=== PATIENT | male | born 1995 | race Two or more races ===

== ENCOUNTER 2024-05-25 21:48 | Emergency (ER) | payer MEDICAID, SELFPAY ==
[2024-05-25 21:48] VITALS: BMI 31.9
[2024-05-25 21:58] VITALS: BP 133/85; PULSE 128; RESP 19; TEMP 36.8; O2SAT 98
--- NOTE | 2024-05-25 22:09 | EKG_ITS ---
[facility] (Formerly [facility]) Test Date: 2024-05-25 Pat Name: JEFFERY DELACRUZ Department: Room: - Gender: Male Dental Office Coordinator: : 1995 Requested By: Darvin Dueñas ([facility]) Order Number: [id number] Reading MD: Darvin Dueñas ([facility]) Measurements Intervals [place] Rate: 122 P: 21 NM: 124 QRS: 44 QRSD: 81 T: -9 QT: 337 QTc: 482 Interpretive Statements SINUS TACHYCARDIA NONSPECIFIC T-WAVE ABNORMALITY ABNORMAL RHYTHM ECG No previous ECG available for comparison /store/S0/[id number].pdf
--- NOTE | 2024-05-25 22:11 | PD.EDRME ---
Rapid Medical Screening Exam RME Arrival date/time: 05/25/24 21:48 89-year-old male presents emergency department complaining of diffuse abdominal pain with nausea and vomiting and fever. Chief Complaint: Abdominal Pain Time Seen by Provider: 05/25/24 22:01 Vital signs: Vital Signs Temperature 98.2 F 05/25/24 21:58 Pulse Rate 128 H 05/25/24 21:58 Respiratory Rate 19 05/25/24 21:58 Blood Pressure 133/85 H 05/25/24 21:58 Pulse Oximetry (%) 98 05/25/24 21:58 Oxygen Delivery Method Room Air 05/25/24 21:58 Vital signs reviewed by provider: Yes
[2024-05-25] MEDS: ACETAMINOPHEN 325 MG TABLET 650 MG PO (22:28)
[2024-05-25] MEDS: ONDANSETRON ODT 4 MG TABRAP PO (22:28)
[2024-05-25 22:38] LABS: Basophils % (Auto) 0 % (0-2.5); Eosinophils % (Auto) 0 % (0-10); Hematocrit 52.2 % (41.0-53.0); Hemoglobin 18.4 g/dL (13.5-16.0); Immature Granulocytes % (Auto) 0 % (0-0); Immature Granulocytes Auto 0.04 Thou/mm3 (0.00-0.00); Lymphocytes # (Auto) 0.6 Thou/mm3 (1.0-4.8); Lymphocytes % (Auto) 5 % (10-50); Mean Corpuscular HGB Conc 35.2 g/dl (31.0-37.0); Mean Corpuscular Hemoglobin 30.8 pg (25.0-35.0); Mean Corpuscular Volume 87 fL (80-100); Monocytes # (Auto) 0.6 Thou/mm3 (0.0-0.8); Monocytes % (Auto) 5 % (0-12); Neutrophils # (Auto) 11.4 Thou/mm3 (1.8-7.7); Neutrophils % (Auto) 90 % (37-80); Nucleated Red Blood Cell % 0 /100 WBC (0); Platelet Count 319 Thou/mm3 (140-440); Red Blood Count 5.97 Miln/mm3 (4.50-5.90); White Blood Count 12.7 Thou/mm3 (3.8-10.6)
[2024-05-25 22:53] LABS: Alanine Aminotransferase 69 U/L (10-49); Albumin/Globulin Ratio 1.6 (1.2-2.2); Alkaline Phosphatase 78 U/L (46-116); Anion Gap 9 (7-16); Aspartate Amino Transferase 41 U/L (0-34); BUN/Creatinine Ratio 17 Ratio (12-20); Blood Urea Nitrogen 15 mg/dL (9-23); Calcium 10.5 mg/dL (8.3-10.6); Calcium (Corrected) 10.5 mg/dL (8.5-10.1); Carbon Dioxide 25.6 mMol/L (20.0-31.0); Chloride 103 mMol/L (98-107); Creatinine (Component) 0.9 mg/dL (0.6-1.3); Globulin 3.1 gm/dL (2.3-3.5); Glucose 109 mg/dL (74-106); Lipase 33 U/L (12-53); Osmolality,Calculated 277 (275-295); Potassium 4.2 mMol/L (3.4-5.1); Sodium 138 mMol/L (136-145); Total Protein 8.1 gm/dL (5.7-8.2); eGFR > 60 See Note
[2024-05-25 23:10] LABS: Collection Type, Urine Clean Catch; Squamous Epithelial Cell,Urine 0 /hpf (0-5)
[2024-05-25 23:23] VITALS: BP 140/96; PULSE 110; RESP 18; TEMP 36.6; O2SAT 98
[2024-05-25 23:39] LABS: Amphetamine/Methamp Scrn,U Negative (Negative); Barbiturate Screen,Urine Negative (Negative); Benzodiazepines Screen,Urine Negative (Negative); Benzoylecgonine Screen, Ur Negative (Negative); Fentanyl Screen,Urine Negative (Negative); Opiate Screen,Urine Negative (Negative); THC Screen,Urine Negative (Negative)
[2024-05-25 23:41] LABS: Amorphous Crystals,Urine Present (Absent); Bilirubin,Urine Negative (Negative); Blood,Urine Negative (Negative); Clarity,Urine Clear (Clear/Hazy); Color,Urine Yellow (Lt Yel-Yel); Culture Indicated,Urine Not Indicated; Glucose, Urine Negative (Negative); Ketones,Urine 1+ (Negative); Leukocyte Esterase,Urine Negative (Negative); Nitrite,Urine Negative (Negative); Protein,Urine 1+ (Neg - Trace); RBC,Urine 7 /hpf (0-3); Urobilinogen,Urine Negative mg/dL (0.0-1.0); WBC,Urine 1 /hpf (0-5)
--- NOTE | 2024-05-26 00:16 | PD.EDABDPN ---
ED Abdominal Pain RME/HPI General Chief Complaint: Abdominal Pain Stated complaint: ABD PAIN, FEVER, VOMITING Time seen by provider: 05/25/24 22:01 Arrival date/time: 05/25/24 21:48 Source: patient Mode of arrival: ambulatory Limitations: no limitations RME / HPI RME / HPI narrative: 05/25/24 21:48 89-year-old male presents emergency department complaining of diffuse abdominal pain with nausea and vomiting and fever. DR MCALLISTER MAIN ED EVALUATION: 29-year-old male presents to the emergency department complaint of abdominal pain. He notes fever, nausea and vomiting. He states he has taken ibuprofen and pepto but without improvement. He rates pain 4/10 in severity, pressure-like. He also reports he is constipated. Denies any other medical complaints or associated symptoms. Related Data Previous Rx's ?Medication ?Instructions ?Recorded ibuprofen 600 mg tablet 600 mg PO Q8H PRN fever or pain 04/25/21 #30 tabs nystatin 100,000 unit/gram topical 1 applic topical TID #90 grams 04/28/21 cream Allergies Allergy/AdvReac Type Severity Reaction Status Date / Time cephalexin [From Keflex] Allergy Intermediate Hives Verified 04/25/21 18:36 Penicillins Allergy Intermediate Hives Verified 04/25/21 18:37 Sulfa (Sulfonamide Allergy Verified 12/29/23 21:56 Antibiotics) Review of Systems Review of Systems Systems Reviewed: All systems reviewed, normal except as documented Past Medical History Social History SMOKING STATUS: Never smoker ED Exam Narrative Physical exam: GENERAL APPEARANCE: alert and oriented x 4, well-developed, well-nourished, no acute distress VITALS: All vitals were reviewed and the pulse ox is 98% on room air, which is normal according to my interpretation. HEENT: Normocephalic, atraumatic; pupils equal, round, reactive to light; EOMI; mucous membranes pink, moist; oropharynx clear NECK: Supple LUNGS: CTABL; no wheezes, no rales, no rhonchi HEART: Regular rate, regular rhythm; normal S1, S2; no murmurs ABDOMEN: non distended; normal BS; soft, no tenderness, no guarding, no rebound; no masses, no organomegaly, no hernia BACK: no CVA tenderness EXTREMITIES: atraumatic; no edema NEUROLOGIC: awake; alert and oriented x4; cranial nerves II-XII grossly intact; no focal sensory or motor deficits PSYCHIATRIC: appropriate mood and affect SKIN: warm, dry, normal color; no rashes General Limitations: Present no limitations Course Quality Measures none Orders Category Date Time Status Bedside COVID-19 Antigen Test NOW Care 05/25/24 22:09 Completed Bedside Influenza A&B Antigen Test NOW Care 05/25/24 22:09 Completed EKG (ED ONLY) *Do not use* NOW Care 05/25/24 22:09 Completed EKG (ED Only) Stat Exams 05/25/24 22:09 Draft US abdomen limited Stat Exams 05/26/24 01:13 Completed CBC Stat Lab 05/25/24 22:16 Completed CMP [Comprehensive Metabolic Panel] Stat Lab 05/25/24 22:16 Completed Drug Screen,Urine Stat Lab 05/25/24 22:32 Completed Lipase Stat Lab 05/25/24 22:16 Completed Urinalysis, C/S if Indicated Stat Lab 05/25/24 22:32 Completed Acetaminophen Tab [Tylenol Tab] Med 05/25/24 22:10 Discontinued 650 mg PO X1 ONE Ondansetron Inj [Zofran Inj] Med 05/26/24 03:02 Discontinued 4 mg IV X1 ONE Ondansetron Odt [Zofran Odt] Med 05/25/24 22:10 Discontinued 4 mg PO X1 ONE Sodium Chloride 0.9% 1000 ml [Ns] 1,000 ml Med 05/26/24 00:56 Discontinued IV 999 mls/hr Sodium Chloride 0.9% 1000 ml [Ns] 1,000 ml Med 05/26/24 00:56 Discontinued IV 999 mls/hr Sodium Chloride 0.9% 1000 ml [Ns] 1,000 ml Med 05/26/24 02:37 Discontinued IV 999 mls/hr Vital Signs Vital signs: Vital Signs Temperature 98.2 F 05/25/24 21:58 Pulse Rate 128 H 05/25/24 21:58 Respiratory Rate 19 05/25/24 21:58 Blood Pressure 133/85 H 05/25/24 21:58 Pulse Oximetry (%) 98 05/25/24 21:58 Oxygen Delivery Method Room Air 05/25/24 21:58 Abdominal Pain MDM MDM Narrative MDM Narrative:: Scribe Attestation: I, Orestes Sun, am scribing for and in the presence of Dr. Mcallister. Provider Notation: Although this document has been carefully reviewed, there may still be some phonetic and other typographical errors. These errors are purely grammatical due to imperfections in the software program and should not be construed in any way to compromise the substance of the patient's medical care during this visit. Patient data External records reviewed:: [facility] previous records Clinical information provided by:: patient and family Social determinants that could affect healthcare access:: none Patient has the following chronic illnesses:: n/a How is presenting disease/condition affected by chronic disease/condition?: no chronic disease Evaluation data The following diagnostics were reviewed and interpreted by me:: lab results and radiology exam(s) Lab and/or radiology exams considered but not ordered:: n/a Interpretation Summary: I personally reviewed the radiology data and agree with the radiologist's interpretation. Ultrasound Abdomen. May 26, 2024 at 0244 hours Clinical history: Vomiting, elevated LFTs. Technique: Grayscale and color flow images of the abdomen are provided. Hepatic and portal veins were also imaged with color flow images. Comparison: No prior study is available for comparison. Findings: Gallbladder wall is 1 mm thick. Gallbladder is distended with sludge, measuring 10.7 x 4.0 x 3.8 cm. No definite gallbladder calculus. Common bile duct is 3 mm in diameter. Pancreas is normal. Liver is 15.3 cm long. No focal hepatic lesion. Main portal vein is antegrade. Inferior vena cava is patent. Impression: Gallbladder is distended with sludge. No specific findings of cholecystitis. Report Electronically Signed By: Elan Mckeon 05/26/2024 4:33:58 AM [EST] Medications / Prescriptions Medications or Prescriptions considered but not ordered:: n/a Medication administrations:: Medication Administration History Discontinued Medications Acetaminophen (Acetaminophen 325 Mg Tablet) 650 mg PO X1 ONE Stop: 05/25/24 22:11 Last Admin: 05/25/24 22:28 Dose: 650 mg Documented By: CVL Sodium Chloride (Ns) 1,000 mls @ 999 mls/hr IV .Q1H1M ONE Stop: 05/26/24 01:56 Last Infusion: 05/26/24 02:44 Dose: Infused Documented By: Admin: 05/26/24 01:17 Dose: 999 mls/hr Documented By: Sodium Chloride (Ns) 1,000 mls @ 999 mls/hr IV .Q1H1M ONE Stop: 05/26/24 01:56 Last Infusion: 05/26/24 02:45 Dose: Infused Documented By: Admin: 05/26/24 01:17 Dose: 999 mls/hr Documented By: Sodium Chloride (Ns) 1,000 mls @ 999 mls/hr IV .Q1H1M ONE Stop: 05/26/24 03:37 Last Admin: 05/26/24 03:15 Dose: 999 mls/hr Documented By: MAYRA Ondansetron HCl (Ondansetron Odt 4 Mg Tabrap) 4 mg PO X1 ONE; Protocol Stop: 05/25/24 22:11 Last Admin: 05/25/24 22:28 Dose: 4 mg Documented By: ROBIN Ondansetron HCl (Ondansetron Inj 2 Mg/Ml Inj 2 Ml) 4 mg IV X1 ONE Stop: 05/26/24 03:03 Last Admin: 05/26/24 03:15 Dose: 4 mg Documented By: MAYRA as above Consultations Consultation(s) initiated? (list below): No Diagnosis Differential diagnosis abdominal pain: abdominal pain, diverticulitis, gastroenteritis, pancreatitis and small bowel obstruction Most likely diagnosis given after review of the tests above:: Gallbladder sludge, Transaminitis, Vomiting, Dehydration Admission Indicated Admission indicated?: not indicated Admission Request Was there a request for admission?: No Disposition Plan Disposition Plan: Discharge Discharge Attestation Discharge Attestation: The patient and all family members were given an opportunity to ask questions and understood the discharge instructions. Discharge instructions specifically effects, indications for sooner follow up or return to the emergency department, and the expected course of current diagnosis. Patient condition: Stable Discharge Plan Plan Patient Disposition: HOME (Self Care) Prescriptions/Referrals Prescriptions/Med Rec: No Action ibuprofen 600 mg tablet 600 mg PO Q8H PRN (Reason: fever or pain) Qty: 30 0RF nystatin 100,000 unit/gram cream 1 applic topical TID Qty: 90 0RF Referrals: No Primary/Family,Physician [Primary Care Provider] - In 1 week Problem List Clinical Impression: Gallbladder sludge, Transaminitis, Vomiting, Dehydration Patient/Caregiver Discharge Instructions Education Materials: ED Dehydration (Adult), ED Vomiting (Adult) Print Language: Indonesian Stand Alone Forms: [employer] Award Info., Patient Portal Info Letter
[2024-05-26 00:45] VITALS: BP 158/84; PULSE 99; RESP 17; TEMP 36.7; O2SAT 98
--- NOTE | 2024-05-26 01:13 | XR_ITS ---
Examination: Abdomen sonogram, Limited Date and time of exam: May 26, 2024 at 0244 hrs. Indications: Epigastric pain nausea vomiting fever beginning today Technique: Real-time max scale transabdominal sonographic images of the upper abdomen obtained. Findings: Distended gallbladder with gallbladder sludge Negative for gallstones Normal gallbladder wall 0.1 cm Common bile duct 0.3 cm Pancreatic head is prominent 3.9 cm Liver 15.3 cm lobular contour no focal liver lesions Normal hepatopedal portal venous flow Patent IVC Impression: Gallbladder sludge, negative for cholelithiasis, negative for cholecystitis Prominent pancreatic head 3.9 cm, clinical correlation advised, consider CT scan abdomen postcontrast follow-up as clinically warranted
[2024-05-26] MEDS: SODIUM CHLORIDE 0.9% 1000 ML 1,000 ML 999 ML IV ×3 (01:17→03:15)
[2024-05-26 02:08] VITALS: BP 132/85; PULSE 113; RESP 18; O2SAT 100
--- NOTE | 2024-05-26 02:10 | PC.NURSE ---
Ptresting quietly. Pts mother is at bedside. Waiting [facility] [employer].
--- NOTE | 2024-05-26 02:43 | PC.NURSE ---
Pt taken to US by [facility]. IV fluids done anddisconected.
[2024-05-26] MEDS: ONDANSETRON INJ 2 MG/ML INJ 2 ML 4 MG IV (03:15)
[2024-05-26 04:14] VITALS: BP 101/58; PULSE 114; RESP 17; TEMP 36.6; O2SAT 95
--- NOTE | 2024-05-26 04:34 | PRELIM_ITS ---
Ultrasound Abdomen. May 26, 2024 at 0244 hours Clinical history: Vomiting, elevated LFTs.Techniq ue: Grayscale and color flow images of the abdomen are provided. Hepatic and portal veins were also i mimi with color flow images. Comparison: No prior study is available for comparison. Findings: Gallb ladder wall is 1 mm thick. Gallbladder is distended with sludge, measuring 10.7 x 4.0 x 3.8 cm. No de finite gallbladder calculus. Common bile duct is 3 mm in diameter. Pancreas is normal. Liver is 15.3 cm long. No focal hepatic lesion. Main portal vein is antegrade. Inferior vena cava is patent.Impress ion: Gallbladder is distended with sludge. No specific findings of cholecystitis. Report Electronical ly Signed By: Elan Mckeon 05/26/2024 4:33:58 AM [EST]
[2024-05-26 05:01] VITALS: BP 128/78; PULSE 99; RESP 18; TEMP 36.6; O2SAT 98
== END 2024-05-26 05:04 | disposition home or self-care (01) ==
PROVIDERS: Emergency Provider Emergency Medicine
DX: K82.8 Other specified diseases of gallbladder (principal); E86.0 Dehydration; R74.01 Elevation of levels of liver transaminase levels; R00.0 Tachycardia, unspecified
CPT/HCPCS: 36415; 76705; 80053; 80307; 81001; 83690; 85025; 87400; 87811; 93005; 96361; 96374; 99284; J2405; J7030; Q0162; A9270

== ENCOUNTER → 2025-04-29 | Outpatient (CLI) | payer MEDICAID, SELFPAY ==
--- NOTE | 2025-04-29 14:30 | XR_ITS ---
EXAMINATION: Testicular sonography complete TECHNIQUE: Grayscale sonographic images testes, assessment arterial inflow and venous outflow Doppler spectral analysis color flow analysis Date and time: April 29, 2025, 1400 hours INDICATIONS: Testicular discomfort beginning 1 month ago, mild left hydrocele on sonogram February 10, 2018 FINDINGS: Right testis 4.7 cm epididymis 13 mm Arterial flow to the testicle. No testicular mass Mild right varicocele Left testis 4.2 cm epididymis 2.0 cm Arterial flow the testicle. No testicular mass Mild varicocele Mild hydrocele IMPRESSION: No testicular torsion or testicular mass Mild bilateral varicoceles
== END | disposition home or self-care (01) ==
PROVIDERS: PCP Family Medicine; Referring Provider Family Medicine; Visit Provider Family Medicine
DX: I86.1 Scrotal varices (principal); Z87.438 Personal history of other diseases of male genital organs
CPT/HCPCS: 76870